=== PATIENT | male | born 1975 ===

== ENCOUNTER → 2018-04-14 23:03 | Outpatient (REF) | payer OTHER, SELFPAY ==
[2018-04-19 10:19] LABS: Syphilis AB Cascading Reflex NEGATIVE (Negative)
[2018-04-21 13:26] LABS: Mitogen-NIL 9.38 IU/mL; NIL 0.04 IU/mL; QuantiFERON TB NEGATIVE (Negative); TB1-NIL 0.27 IU/mL; TB2-NIL 0.31 IU/mL
== END ==
LOC: LAB 23:03
PROVIDERS: Visit Provider Family Medicine
DX: Z11.1 Encounter for screening for respiratory tuberculosis (principal); Z11.3 Encounter for screening for infections with a predominantly sexual mode of transmission
CPT/HCPCS: 36415; 86480; 86780; 87591